=== PATIENT | male | born 1975 | race Caucasian/White ===

== ENCOUNTER → 2017-09-17 | Outpatient (CLI) | payer OTHER ==
[~2017-09-17] MED LIST: AMOX-559 PO; AZIT-1 PO; BENZ100C26 PO; FLUT16SP19 NS; IBUP-56 PO; TAMS0.4C70 PO
[2017-09-17 11:58] LABS: PLATELET COUNT, AUTOMATED 242 K/uL (150-450)
== END ==
LOC: LAB 11:19
PROVIDERS: ATTEND Internal Medicine
DX: N40.0 Benign prostatic hyperplasia without lower urinary tract symptoms (principal)
CPT/HCPCS: 36415; 81001; 82040; 82247; 82310; 82374; 82435; 82565; 82947; 84075; 84132; 84153; 84155; 84295; 84443; 84450; 84460; 84520; 85025